=== PATIENT | female | born 1990 | race Two or more races ===

== ENCOUNTER 2020-04-14 12:39 | Emergency (ER) | payer OTHER ==
[~2020-04-14] VITALS: Ht 165.1 cm; Wt 124.7 kg
[2020-04-14] MEDS ORDERED: ORPHENADRINE C100 MG PO (16:04)
[2020-04-14] MEDS ORDERED: DICLOFENAC SODI50 MG PO (16:04)
== END 2020-04-14 16:32 | disposition home or self-care (01) ==
LOC: ER 12:39
DX: S80.02XA Contusion of left knee, initial encounter (principal); W01.0XXA Fall on same level from slipping, tripping and stumbling without subsequent striking against object, initial encounter; Y93.89 Activity, other specified; Y92.520 Airport as the place of occurrence of the external cause; Y99.8 Other external cause status